=== PATIENT | female | born 1940 | race Caucasian/White ===

== ENCOUNTER 2024-11-01 08:03 | Emergency (ER) | payer OTHER, SELFPAY ==
[2024-11-01 08:08] VITALS: BP 131/61
--- NOTE | 2024-11-01 08:55 | ED.GENMED ---
History of Present Illness
General
Chief Complaint: Fall
Source: patient and family
Exam Limitations: none
Time Seen by Provider: 11/01/24 08:34
History of Present Illness
History of Present Illness:
84yo left hand dominant female with a history of hypertension, hyperlipidemia, and type 2 diabetes presenting with her daughter for evaluation of a left wrist injury. Patient tripped and fell 2 days ago and landed on her left wrist. She did strike
her head but denies any loss of consciousness. She has not had any headache, dizziness, visual changes, vomiting, neck pain. Patient is here with left wrist pain and swelling. She did sustain a small wound on the ulnar aspect of the hand from the
fall which daughter has been cleaning regularly. Patient denies any fevers, chills, paresthesias. Tdap is reported to be up to date.
Phy Exam
General Physical Exam
General Presentation: well appearing and no apparent distress
General age: appears stated age
General Skin: warm and dry
General Habitus: normal
General Mental: alert
ENT Exam
ENT Exam: other (Old ecchymosis noted to L temporal area. No tenderness or hematoma.)
Eye Exam
Eye Exam: PERRL
Neurological Exam
Neurological Exam: alert
[place] Coma Scale
Eye Opening: Spontaneous
Verbal Response: Oriented
Motor Response: Obeys Commands
GCS Total Score: 15
Musculoskeletal Exam
Musculoskeletal Exam: other (L wrist: Diffuse swelling noted to wrist with ecchymosis. +Snuffbox tenderness. There is a small open wound to the ulnar aspect of the hand without drainage/warmth/surrounding erythema. ROM of wrist mildly decreased and
elicits pain. 2+ radial pulse and sensation intact.)
Skin Exam
Skin Exam: warm/dry
Psychiatric Exam
Psychiatric Exam: normal mood/affect
Course
Orders/Labs/Results
Orders:
Orders
11/01/24 08:11
CR Hand - Left Min 3 Views Urgent
Comment: left hand swollen
Reason For Exam: fell on saturday pain to left hand and wrist
Wrist, Left 3 Views CR [CR Wrist - Left Min 3 Views] Urgent
Comment:
Reason For Exam: fell on
11/01/24 08:52
Splints/Slings/Crut- Treatment ONCE
Location: Left
Type of Splint: Thimb Spica
Oxycodone/Acetaminophen [Percocet 5/325] 1 tablet PO NOW STA
Vital Signs
Initial and Last Documented VS:
Initial Vital Signs
Temp Pulse Resp BP Pulse Ox
98.1 F 72 16 131/61 98
11/01/24 08:08 11/01/24 08:08 11/01/24 08:08 11/01/24 08:08 11/01/24 08:08
Last Documented Vital Signs
Temp Pulse Resp BP Pulse Ox
98.1 F 72 16 131/61 98
11/01/24 08:08 11/01/24 08:08 11/01/24 08:08 11/01/24 08:08 11/01/24 08:08
MDM/Problems Addressed
Differential Diagnosis Includes:
84yoF here with L wrist pain/swelling after an injury 2 days ago. Diffuse swelling and ecchymosis on exam. There is snuffbox tenderness. Small wound to the hand noted without signs of infection. LUE is neurovascularly intact. Differential diagnosis
includes: sprain, fracture
X-rays of hand/wrist obtained. There is a faint lucency at the radial styloid which is suggestive of a fracture. Given snuffbox tenderness, she was placed in a thumb spica splint by robotics technologist. Neurovascular status unchanged after splint placement.
Advised f/u with orthopedics for further care.
*Critical Care Note
Total Time (30-74mins, 75-104mins- exclusive of procedures): Not Applicable
ED Attending Note
-
Portions of this chart may have been created with voice recognition software.� Occasional wrong word or��sound alike� substitutions may have occurred due to the inherent limitations of voice recognition software.
Discharge Plan
Departure
Patient Disposition: Home (Routine Discharge)
Date of Disposition: 11/01/24
Time of Disposition: 09:42
Patient with high blood pressure during this ER visit?: No
Discharge Problem:
Nondisplaced fracture of left radial styloid process, initial encounter for closed fracture
Instructions: Wrist fracture
Referrals:
Jared Coffey MD [Active] -
Al Wakefield MD [Family Provider] -
Activity Restrictions/Additional Instructions:
Keep splint in place and do not get wet. Take Tylenol as needed for pain.
Please call tomorrow to schedule a follow-up with orthopedics. Return to the ER with any worsening symptoms.
Interventions
Interventions:
*Risk Screen - Suicide Last Done: 11/01/24 08:08
*Neglect/Abuse Screening Last Done: 11/01/24 08:08
Discharge Date and Time
Print Language: ANDORRAN
[2024-11-01] MEDS: PERCOCET 5/325 1 TABLET PO (09:19)
== END 2024-11-01 09:50 | disposition home or self-care (01) ==
LOC: EMR 08:03
PROVIDERS: EMERGENCY PHYSICIAN Emergency Medicine; FAMILY PHYSICIAN Family Medicine
DX: S52.515A Nondisplaced fracture of left radial styloid process, initial encounter for closed fracture (principal); W01.0XXA Fall on same level from slipping, tripping and stumbling without subsequent striking against object, initial encounter; I10 Essential (primary) hypertension; E78.5 Hyperlipidemia, unspecified; E11.9 Type 2 diabetes mellitus without complications
CPT/HCPCS: 29125; 99283; 73110; 73130